=== PATIENT | male | born 1995 | race Caucasian/White ===

== ENCOUNTER 2018-01-16 13:17 | Emergency (ER) | payer OTHER, BC ==
--- NOTE | 2018-01-16 13:30 | ER Report ---
History and Physical Time Seen By MD: 13:30 Hx. of Stated Complaint: PATIENT CUT LEFT THUMB WHILE CUTTING CHICKEN AT WORK HPI/ROS CHIEF COMPLAINT: thumb laceration HISTORY OF PRESENT ILLNESS: This is a 22 year old male. He was cutting some chicken (cooked) at work and cut his thumb. Bleeding. Normal sensation. Up to date on tetanus. Normal movement. Allergies: Coded Allergies: No Known Drug Allergies (Unverified , 01/16/18) Reviewed Nurses Notes: Yes Hx Substance Use Disorder: No Hx Alcohol Use: No Constitutional Vital Sign - Last 24 Hours 01/16/18 01/16/18 13:23 14:19 Temp 98.3 Pulse 76 69 Resp 16 16 B/P (MAP) 135/88 107/54 (71) Pulse Ox 96 99 O2 Delivery Room Air Physical Exam General: Alert, no acute distress. Skin: about 3cm laceration on pad of left thumb. Musculoskeletal: Normal motor. Neuro: Normal sensation; normal movement and strength. Cardiovascular: Normal capillary refill. Medical Decision Making ED Course/Re-evaluation ED Course Procedure: Laceration Repair Verbal consent from patient after discussing repair options, risks and benefits. Wound cleaned extensively with Hibiclens and saline. Anesthesia: Digital block with 1% lidocaine without epinephrine. Location: Left thumb pad. Length: 3 cm. Character: Brisk bleeding. There were no deep structures involved. No tendon injury was identified. Wound repair: Running 4-0 Prolene suture. The wound repair was simple and performed by myself. Wound care instructions discussed. Sutures need to be removed in 7 days. Decision to Disposition Date: January 16, 2018 Decision to Disposition Time: 14:14 Depart Departure Latest Vital Signs Vital Signs Date Time Temp Pulse Resp B/P (MAP) Pulse Ox O2 Delivery O2 Flow Rate FiO2 01/16/18 14:19 69 16 107/54 (71) 99 01/16/18 13:23 98.3 Room Air Impression: Primary Impression: Thumb laceration Condition: Improved Disposition: HOME OR SELF-CARE Patient Instructions: Finger Laceration (ED) Additional Instructions: Wound Care: Wash the wound once a day with soap and water. Dry the wound and apply a small amount of antibiotic ointment with a clean dressing. If the dressing becomes wet or dirty, repeat cleaning and dressing as above. No soaking the wound; no swimming. Stitches need to be removed in 5-7 days. Pain Control: Use Tylenol or ibuprofen for pain. Using and ice pack can help reduce swelling. Problem Qualifiers Primary Impression: Thumb laceration Encounter type: initial encounter Damage to nail status: without damage Foreign body presence: without foreign body Laterality: left Qualified Codes : S61.012A - Laceration without foreign body of left thumb without damage to nail, initial encounter GENE GALLO MD January 16, 2018 13:30
[2018-01-16 14:19] VITALS: BP 107/54
== END 2018-01-16 14:27 | disposition home or self-care (01) ==
LOC: ER 13:29
DX: S61.012A Laceration without foreign body of left thumb without damage to nail, initial encounter (principal); W26.0XXA Contact with knife, initial encounter; Y93.G3 Activity, cooking and baking
CPT/HCPCS: 99282

== ENCOUNTER 2018-01-23 15:00 | Emergency (ER) | payer OTHER, BC ==
[2018-01-23 15:04] VITALS: BP 119/58
--- NOTE | 2018-01-23 15:22 | ER Report ---
History and Physical Time Seen By MD: 15:14 Hx. of Stated Complaint: SUTURE REMOVAL HPI/ROS CHIEF COMPLAINT: Suture removal HISTORY OF PRESENT ILLNESS: The patient had a left medial thumb laceration approximately 8 days ago. One running suture to the left medial thumb. No cellulitis or concerns of infection. Wound is well approximated. Patient is here to have the suture removed. No recent aches, chills, nausea, vomiting or diarrhea. Allergies: Coded Allergies: No Known Drug Allergies (Unverified , 01/16/18) Past Medical/Surgical History Patient has no significant past medical or surgical history. Reviewed Nurses Notes: Yes Hx Substance Use Disorder: No Hx Alcohol Use: No Constitutional Vital Sign - Last 24 Hours 01/23/18 15:04 Temp 98.3 Pulse 65 Resp 15 B/P (MAP) 119/58 Pulse Ox 95 Physical Exam General appearance: Alert no distress. Respiratory: Chest is non tender, lungs are clear to auscultation. Cardiac: Regular rate and rhythm Integumentary: 1 running suture to the left medial thumb. No cellulitis, erythema or infectious process identified. DIFFERENTIAL DIAGNOSIS: After history and physical exam differential diagnosis was considered for suture removal. Medical Decision Making ED Course/Re-evaluation ED Course The patient was admitted to room. History and physical were obtained. The one running suture was removed. Patient tolerated well. Patient was discharged home. Patient was encouraged to monitor for signs of infection and return to the emergency department for any other concerns. Patient expressed understanding was discharged home. Decision to Disposition Date: January 23, 2018 Decision to Disposition Time: 15:21 Depart Departure Latest Vital Signs Vital Signs Date Time Temp Pulse Resp B/P (MAP) Pulse Ox O2 Delivery O2 Flow Rate FiO2 01/23/18 15:04 98.3 65 15 119/58 95 Impression: Primary Impression: Visit for suture removal Condition: Improved Disposition: HOME OR SELF-CARE Patient Instructions: Acute Wound Care (ED) Additional Instructions: Drink plenty of water. Get plenty of rest. Continue to monitor your wound for infection. Return to the emergency department for any other concerns or worsening symptoms. JOSHUA MILLER TECHNICAL OPERATIONS VICE PRESIDENT-BC January 23, 2018 15:22
== END 2018-01-23 15:30 | disposition home or self-care (01) ==
LOC: ER 15:16
DX: S61.012D Laceration without foreign body of left thumb without damage to nail, subsequent encounter (principal)
CPT/HCPCS: 99282